=== PATIENT | male | born 1975 | race African-American/Black ===

== ENCOUNTER 2017-01-02 15:46 | Emergency (ER) | payer BC ==
[~2017-01-02] VITALS: Ht 180.3 cm; Wt 113.4 kg
[2017-01-02 16:23] LABS: HEMATOCRIT 47.8 % (42.0-52.0); HEMOGLOBIN 16.7 gm/dL (14.0-18.0); MCH 31.7 pg (26.0-34.0); MCV 90.5 fL (80.0-100.0); PLATELET COUNT 211 thou/uL (150-400); RBC 5.29 mil/uL (4.50-6.00); RDW 11.9 % (10.5-14.5); WBC 6.2 thou/uL (4.0-11.0)
[2017-01-02 16:31] LABS: MANUAL DIFF YES
[2017-01-02 16:35] LABS: CALCIUM 9.2 mg/dL (8.5-10.1)
[2017-01-02 16:39] LABS: ALBUMIN 3.9 g/dL (3.4-5.0); TOTAL BILIRUBIN 0.8 mg/dL (<0.1-1.0); TOTAL PROTEIN 8.5 g/dL (6.4-8.2)
[2017-01-02] MEDS ORDERED: MIRALAX17 GM PO (16:50)
[2017-01-02] MEDS ORDERED: OSELB75 PO (16:50)
[2017-01-02] MEDS ORDERED: MOBIC15 MG PO (16:50)
[2017-01-02 17:00] LABS: ABSOLUTE NEUTROPHILS 4.2 thou/uL (1.4-8.2); TOTAL CELL COUNT 100
[2017-01-02 17:22] VITALS: BP 122/92
== END 2017-01-02 17:24 | disposition home or self-care (01) ==
LOC: ER 15:46
PROVIDERS: Physician Assistant
DX: J11.1 Influenza due to unidentified influenza virus with other respiratory manifestations (principal); E11.9 Type 2 diabetes mellitus without complications